=== PATIENT | female | born 1950 | race Caucasian/White ===

== ENCOUNTER 2017-07-18 08:05 | Day surgery (SDC) | payer OTHER ==
[~2017-07-18] VITALS: Ht 157.5 cm; Wt 76.6 kg
[~2017-07-18 08:05] MED LIST: CELEBREX200 MG PO; Coumadin dosing per PO; FLEXERIL10 MG PO; MEVACOR40 MG PO; NORVASC5 MG PO; PREDNISONE10 MG PO; PRILOSEC20 MG PO; TOPROL XL100 MG PO; TYLENOL EXTRA500 MG PO; ULTRAM50 MG PO; VOLTAREN-XR100 MG PO; Vicodin,Norco 5/325 PO; ZOLOFT50 MG PO
[2017-07-18 09:10] VITALS: BP 181/77
[2017-07-18 14:28] VITALS: BP 152/73
[2017-07-18 19:00] VITALS: BP 150/72
[2017-07-18 23:38] VITALS: BP 155/78
[2017-07-19 03:42] VITALS: BP 147/69
[2017-07-19 06:00] LABS: HEMATOCRIT 33.6 % (36.0-46.0); HEMOGLOBIN 10.8 G/DL (11.9-15.5); MCV 92.8 FL (83-99)
[2017-07-19] MEDS ORDERED: ASPIR-LOW81 MG PO (08:17)
[2017-07-19] MEDS ORDERED: OXYCODONE HCL5 MG PO (08:18)
[2017-07-19 08:20] VITALS: BP 150/72
[2017-07-19 11:43] VITALS: BP 165/74
[2017-07-19 15:42] VITALS: BP 125/62
[2017-07-19 23:22] VITALS: BP 141/67
[2017-07-20 06:00] LABS: HEMATOCRIT 31.7 % (36.0-46.0); MCV 93.5 FL (83-99)
[2017-07-20 07:39] VITALS: BP 157/72
== END 2017-07-20 12:31 | disposition home or self-care (01) ==
LOC: SDC 08:05 → 2SOUTH 12:10 → ENRESERV 12:29 → 3EAST 14:14
PROVIDERS: Orthopaedic Surgery
PROC: 0RRK0J6 Replacement of Left Shoulder Joint with Synthetic Substitute, Humeral Surface, Open Approach (ICD-10-PCS; principal; 2017-07-18)
DX: M19.012 Primary osteoarthritis, left shoulder (principal); M54.2 Cervicalgia; M54.9 Dorsalgia, unspecified; I10 Essential (primary) hypertension; E78.5 Hyperlipidemia, unspecified; F41.9 Anxiety disorder, unspecified; K21.9 Gastro-esophageal reflux disease without esophagitis; F32.9 Major depressive disorder, single episode, unspecified; Z90.49 Acquired absence of other specified parts of digestive tract; Z96.641 Presence of right artificial hip joint; Z88.8 Allergy status to other drugs, medicaments and biological substances; Z83.3 Family history of diabetes mellitus; Z82.49 Family history of ischemic heart disease and other diseases of the circulatory system
CPT/HCPCS: 85014; 85018; G0378; J0131; J0690; J1100; J2250; J2405; J2765; J2795; J3010; J7030; J7050